=== PATIENT | female | born 1985 | race African-American/Black ===

== ENCOUNTER 2016-09-18 11:05 | Emergency (ER) | payer BC | END 2016-09-18 11:20 | disposition home or self-care (01) | LOC: ER 11:05 | DX: M25.512 Pain in left shoulder (principal); I10 Essential (primary) hypertension; E11.9 Type 2 diabetes mellitus without complications; Z88.2 Allergy status to sulfonamides; Z91.010 Allergy to peanuts; Z91.018 Allergy to other foods; Z91.040 Latex allergy status | CPT/HCPCS: 73030-LT; 84703; 96372; 99284; J1885 ==

== ENCOUNTER 2016-09-19 03:20 | Emergency (ER) | payer BC | END 2016-09-19 03:28 | disposition home or self-care (01) | LOC: ER 03:20 | DX: M25.512 Pain in left shoulder (principal); J45.909 Unspecified asthma, uncomplicated; I10 Essential (primary) hypertension; Z88.2 Allergy status to sulfonamides; Z91.010 Allergy to peanuts; Z91.040 Latex allergy status | CPT/HCPCS: 93005; 96372; 99284; A9270-GY; J1885; J2360 ==